=== PATIENT | male | born 1980 | race Hispanic/Latino ===

== ENCOUNTER 2018-08-27 13:32 | Emergency (ER) | payer OTHER ==
[~2018-08-27] VITALS: Ht 190.5 cm; Wt 192.3 kg
[2018-08-27] MEDS ORDERED: CLINDAMYCIN PHOS 600 MG/ 4 ML VIAL IM ONE (17:45)
[2018-08-27] MEDS ORDERED: LIDOCAINE HCL 1% LOCAL INJ 20 ML VIAL INJ ONE (19:00)
[2018-08-27] MEDS ORDERED: TETANUS/DIPHTHERIA TOX ADULT 0.5 ML SYR IM ONE (19:00)
--- NOTE | 2018-08-27 19:45 | Diagnostic Imaging Report ---
Exam: Lower leg, 4 views History: Rule out osteomyelitis Comparison: None. Findings: There is normal bone mineralization. No acute, displaced fracture or dislocation. Joint spaces preserved. No cortical erosion or destruction. No abnormal soft tissue calcification or soft tissue defect. Moderate soft tissue swelling surrounding the ankle. Impression: 1. No cortical erosion or destruction to suggest osteomyelitis. Signed by: Dr. Jt Fischer M.D. on 08/27/2018 7:42 PM
[2018-08-27 20:46] VITALS: BP 112/76
[2018-08-27] MEDS ORDERED: ULTRAM 50MG50 MG PO (20:50)
[2018-08-27] MEDS ORDERED: MOTRIN200 MG PO (20:50)
[2018-08-27] MEDS ORDERED: CLINDAMYCIN HC150 MG PO (20:50)
== END 2018-08-27 20:58 | disposition home or self-care (01) ==
LOC: ER 13:32
DX: L03.116 Cellulitis of left lower limb (principal); L02.416 Cutaneous abscess of left lower limb
CPT/HCPCS: 10061; 36415; 73590; 82948; 90471; 90714; 99284; J2001

== ENCOUNTER → 2018-08-31 | Outpatient (CLI) | payer OTHER ==
[~2018-08-31] MED LIST: CLINDAMYCIN HC150 MG PO; COLLAGENASE OINTMENT 30 GM TUBE ONE; LIDOCAINE/PRILOCAINE 2.5-2.5% KIT ONE; MINERAL OIL/PETROLAT/GLYCERI 6OZ BTL ONE; MOTRIN200 MG PO; ULTRAM 50MG50 MG PO
== END ==
LOC: WCC 09:00
PROVIDERS: ATTEND Internal Medicine Infectious Disease
DX: E11.65 Type 2 diabetes mellitus with hyperglycemia (principal); S81.802A Unspecified open wound, left lower leg, initial encounter; R60.0 Localized edema; I87.2 Venous insufficiency (chronic) (peripheral); L02.436 Carbuncle of left lower limb
CPT/HCPCS: 36415; 82948

== ENCOUNTER → 2018-09-07 | Outpatient (CLI) | payer OTHER ==
[~2018-09-07] MED LIST changes: -COLLAGENASE OINTMENT 30 GM TUBE ONE; -LIDOCAINE/PRILOCAINE 2.5-2.5% KIT ONE; -MINERAL OIL/PETROLAT/GLYCERI 6OZ BTL ONE
== END ==
LOC: WCC 09:23
PROVIDERS: ATTEND Internal Medicine Infectious Disease
DX: E11.65 Type 2 diabetes mellitus with hyperglycemia (principal); S81.802A Unspecified open wound, left lower leg, initial encounter; R60.0 Localized edema; L02.436 Carbuncle of left lower limb; I87.2 Venous insufficiency (chronic) (peripheral)

== ENCOUNTER → 2018-09-28 | Outpatient (CLI) | payer OTHER | LOC: WCC 10:18 | PROVIDERS: ATTEND Internal Medicine Infectious Disease | DX: E11.65 Type 2 diabetes mellitus with hyperglycemia (principal); S81.802A Unspecified open wound, left lower leg, initial encounter; R60.0 Localized edema; I87.2 Venous insufficiency (chronic) (peripheral); L02.436 Carbuncle of left lower limb ==

== ENCOUNTER → 2018-10-29 | Outpatient (CLI) | payer OTHER | LOC: WCC 15:10 | PROVIDERS: ATTEND Internal Medicine Infectious Disease | DX: E11.65 Type 2 diabetes mellitus with hyperglycemia (principal); S81.802A Unspecified open wound, left lower leg, initial encounter; R60.0 Localized edema; L02.436 Carbuncle of left lower limb; I87.2 Venous insufficiency (chronic) (peripheral) ==

== ENCOUNTER → 2019-01-18 | Outpatient (CLI) | payer OTHER ==
[~2019-01-18] MED LIST changes: +LIDOCAINE/PRILOCAINE 2.5-2.5% KIT ONE
== END ==
LOC: WCC 14:13
PROVIDERS: ATTEND Internal Medicine Infectious Disease
DX: E11.65 Type 2 diabetes mellitus with hyperglycemia (principal); S81.802A Unspecified open wound, left lower leg, initial encounter; L02.436 Carbuncle of left lower limb; R60.0 Localized edema; I87.2 Venous insufficiency (chronic) (peripheral)

== ENCOUNTER → 2019-05-17 | Outpatient (CLI) | payer OTHER | LOC: WCC 10:07 | PROVIDERS: ATTEND Internal Medicine Pulmonary Disease | DX: E11.65 Type 2 diabetes mellitus with hyperglycemia (principal); I87.312 Chronic venous hypertension (idiopathic) with ulcer of left lower extremity; L97.829 Non-pressure chronic ulcer of other part of left lower leg with unspecified severity; I87.2 Venous insufficiency (chronic) (peripheral); L02.436 Carbuncle of left lower limb | CPT/HCPCS: 36415; 82948 ==

== ENCOUNTER → 2019-05-24 | Outpatient (CLI) | payer OTHER ==
[~2019-05-24] MED LIST changes: +LIDOCAINE VISC 2% SOLN 15 ML UDC ONE; -LIDOCAINE/PRILOCAINE 2.5-2.5% KIT ONE
== END ==
LOC: WCC 11:38
PROVIDERS: ATTEND Internal Medicine Infectious Disease
DX: E11.65 Type 2 diabetes mellitus with hyperglycemia (principal); I87.312 Chronic venous hypertension (idiopathic) with ulcer of left lower extremity; L97.829 Non-pressure chronic ulcer of other part of left lower leg with unspecified severity; I87.2 Venous insufficiency (chronic) (peripheral); L02.436 Carbuncle of left lower limb

== ENCOUNTER → 2019-05-31 | Outpatient (CLI) | payer OTHER ==
[~2019-05-31] MED LIST changes: +MUPIROCIN 2% OINT 22 GM TUBE ONE
== END ==
LOC: WCC 11:02
PROVIDERS: ATTEND Internal Medicine Pulmonary Disease
DX: E11.65 Type 2 diabetes mellitus with hyperglycemia (principal); I87.312 Chronic venous hypertension (idiopathic) with ulcer of left lower extremity; L97.829 Non-pressure chronic ulcer of other part of left lower leg with unspecified severity; I87.2 Venous insufficiency (chronic) (peripheral); L02.436 Carbuncle of left lower limb
CPT/HCPCS: 36415; 82948

== ENCOUNTER → 2019-06-03 | Outpatient (CLI) | payer OTHER ==
[~2019-06-03] MED LIST changes: -MUPIROCIN 2% OINT 22 GM TUBE ONE
== END ==
LOC: WCC 13:20
PROVIDERS: ATTEND Internal Medicine Infectious Disease
DX: I87.312 Chronic venous hypertension (idiopathic) with ulcer of left lower extremity (principal); E11.65 Type 2 diabetes mellitus with hyperglycemia; L97.829 Non-pressure chronic ulcer of other part of left lower leg with unspecified severity; S81.842A Puncture wound with foreign body, left lower leg, initial encounter; I87.2 Venous insufficiency (chronic) (peripheral); L02.436 Carbuncle of left lower limb; M60.062 Infective myositis, left lower leg
CPT/HCPCS: 36415; 82948